=== PATIENT | male | born 1990 | race Caucasian/White ===

== ENCOUNTER → 2019-11-15 14:04 | Outpatient (BNVA) | payer SELFPAY | PROVIDERS: Family Provider Family Medicine; Visit Provider Nurse Practitioner | DX: S93.402A Sprain of unspecified ligament of left ankle, initial encounter (principal); W23.1XXA Caught, crushed, jammed, or pinched between stationary objects, initial encounter; Z68.27 Body mass index [BMI] 27.0-27.9, adult; F17.210 Nicotine dependence, cigarettes, uncomplicated | CPT/HCPCS: 73610 ==

== ENCOUNTER 2021-02-26 16:33 | Inpatient (IN) | payer SELFPAY ==
[2021-02-26 16:42] VITALS: BP 148/87; PULSE 87; RESP 18; TEMP 37; O2SAT 97; BMI 27.1
--- NOTE | 2021-02-26 16:44 | W.ED.PSYCH ---
HPI - Psych General: Chief Complaint: Psychiatric Symptoms Stated Complaint: 96 - THOUGHTS OF SELF HARM Time Seen by Provider: 02/26/21 16:44 History of Present Illness: HPI Narrative: Mr. Arteaga is a 31-year-old gentleman with no significant past medical history who presents emergency department for psychiatric evaluation. He describes a longstanding history of psychiatric concerns going back to when he was 8 years old and his father . He, as a child and teenager, was evaluated by psychiatry and had a few inpatient stays however is not been on medication or back to a psychiatric care provider for years. He is not currently on any medications. He reports a longstanding history of suicidal ideation and various plans across his mind. He describes episodes of blowups where he nearly gets to the point of trying to kill himself but stops. He offers good insight into knowing that he is not his best self because of these issues and wants to be better. No prior actual suicide attempts. No other medical complaints. Overall the course of symptoms persists. Intensity today is moderate to severe in law enforcement was involved after his fianc?e called them because of 1 of these episodes. He endorses sitting in his car with plan to shoot himself though he did not actually load a gun. He additionally thinks of cutting himself or jumping in front of traffic. Review of Systems General: Reports: 10 or more systems reviewed and unremarkable except in HPI and below PFSH ED PFSH: Social History Smoking and tobacco status: current every day smoker Physical Exam Narrative: EXAM NARRATIVE: GENERAL/CONSTITUTIONAL - well-appearing. No acute distress. Eyes -no scleral icterus, no conjunctival injection ENMT - Atraumatic external nose and ears. Moist mucous membranes NECK - supple. trachea midline CARDIOVASCULAR - regular rate and rhythm. RESPIRATORY -clear to auscultation bilaterally. ABDOMEN/GI - Nontender/Nondistended. MSK - Extremities without obvious deformity or tenderness to palpation SKIN - Warm, Dry NEURO - alert and appropriately oriented.Moves all extremities equally. PSYCH -depressed. Mildly anxious Course ED course: - Patient was seen and evaluated by me at bedside - Patient placed on cardiac monitors, IV access obtained - Initial evaluation notable for exam as noted above, nontoxic. Cooperative. - Labs notable for leukocytosis of unclear etiology, no specific infectious symptoms ordered, patient likely somewhat hemoconcentrated. Ingestions negative with exception of marijuana. No significant metabolic abnormality to explain patient's symptoms - Upon serial reexamination after treatment the patient was similar. He did express frustration regarding not being allowed to go out and smoke. - Given the patient's actions today 96-hour paperwork filled out after discussion with psychiatry. - Psychiatry service to admit the patient. Based on ED evaluation there is no obvious condition that would preclude the patient from inpatient management of psychiatric symptoms. Vital Signs: Vital signs: Vital Signs Temperature 98.2 F 02/27/21 20:33 Pulse Rate 56 L 02/27/21 20:33 Respiratory Rate 18 02/27/21 20:33 Blood Pressure 101/61 02/27/21 20:33 Pulse Oximetry 98 02/27/21 20:33 MDM - Psych Medical Records: Attestation: I reviewed the patient's medical records. Lab Data: Attestation: I reviewed the patient's lab results. Labs: Lab Results 02/26/21 02/26/21 02/26/21 16:55 16:55 16:55 WBC 14.0 10^3/uL H 10 ^3/uL (4.0-10.0) RBC 5.55 10^6/uL H 10 ^6/uL (4.1-5.3) Hgb 16.6 g/dL g/dL (11.7-16.6) Hct 48.9 % % (42.0-52.0) MCV 88.1 fl fl (80-94) MCH 29.9 pg pg (28.0-34.0) MCHC 33.9 g/dL g/dL (30.0-36.0) RDW 13.5 % % (12.1-15.1) Plt Count 202 10^3/cmm 10^3 /cmm (130-400) MPV 10.6 fL H fL (7.4-10.4) Neut % (Auto) 81.8 % % Lymph % (Auto) 11.4 % % [place] % (Auto) 6.2 % % Eos % (Auto) 0.1 % % Baso % (Auto) 0.2 % % Neut # (Auto) 11.47 10^3/uL H 1 0^3/uL (1.8-7.7) Lymph # (Auto) 1.6 10^3/uL 10^3/ uL (0.8-4.8) [place] # (Auto) 0.9 10^3/uL 10^3/ uL (0.2-0.9) Eos # (Auto) 0.0 10^3/uL 10^3/ uL (0.0-0.8) Baso # (Auto) 0.0 10^3/uL 10^3/ uL (0.0-0.1) Nucleated RBC % (a uto) 0 % % Nucleated RBCs # 0.0 /100WBC /100W BC Sodium 137 mmol/L mmol/L (136-145) Potassium 3.5 mmol/L mmol/L (3.5-5.1) Chloride 100 mmol/L mmol/L (98-107) Carbon Dioxide 25 mmol/L mmol/L (22-29) Anion Gap 15.5 (5-19) BUN 11 mg/dL mg/dL (6-20) Creatinine 0.9 mg/dL mg/dL (0.7-1.2) GFR Calculation 99.1 mL/min mL/mi n (90-130) Glucose 95 mg/dL mg/dL (65-115) Calculated Osmolal ity 283 mOsm/kg L mOs m/kg (285-295) Calcium 9.6 mg/dL mg/dL (8.5-10.5) Total Bilirubin 0.3 mg/dL mg/dL (0.15-1.2) AST 18 U/L U/L (0-40) ALT 23 U/L U/L (0-41) Alkaline Phosphata se 63 IU/L IU/L (40-130) Total Protein 7.7 g/dL g/dL (6.6-8.7) Albumin 5.0 g/dL g/dL (3.5-5.2) Globulin 2.7 g/dL g/dL (1.3-4.6) TSH 1.45 uIU/mL uIU/m L (0.27-4.20) Salicylates < 0.3 mg/dL L mg/ dL (3-10) Urine Opiates Scre en Negative ng/mL ng /mL (Negative) Acetaminophen < 5.0 ug/mL L ug/ mL (10-30) Ur Barbiturates Sc reen Negative ng/mL ng /mL (Negative) Ur Phencyclidine S crn Negative ng/mL ng /mL (Negative) Ur Amphetamines Sc reen Negative ng/mL ng /mL (Negative) U Benzodiazepines Scrn Negative ng/mL ng /mL (Negative) Urine Cocaine Scre en Negative ng/mL ng /mL (Negative) U Marijuana (THC) Screen Positive ng/mL H ng/mL (Negative) Ethyl Alcohol < 10 mg/dL mg/dL (0-10) Discharge Plan Discharge Patient Disposition: Admitted As Inpatient Admit Provider: Kavin Arteaga Clinical Impression: Suicidal ideation Condition: Stable Coding Level of Care Code ED Appeals Reviewer Veteran for Jean Carlos Avalos
--- NOTE | 2021-02-26 16:52 | ECG_ITS ---
[facility] Test Date: 2021-02-26 Pat Name: aTl Arteaga Department: Room: Gender: Male Curriculum Development Manager: : 1990 Requested By: Zac Patel Order Number: [id number] Hicks MD: Mary Jesus M.D. Measurements Intervals [place] Rate: 80 P: 52 FL: 165 QRS: 69 QRSD: 96 T: 42 QT: 344 QTc: 397 Interpretive Statements SINUS RHYTHM No previous ECG available for comparison Electronically Signed On 02-26-2021 21:55:13 CDT by Mary Jesus M.D. [id number]
[2021-02-26 17:05] LABS: Basophils % 0.2 %; Eosinophils % 0.1 %; Hematocrit 48.9 % (42.0-52.0); Hemoglobin 16.6 g/dL (11.7-16.6); Lymphocytes # 1.6 10^3/uL (0.8-4.8); Lymphocytes % 11.4 %; Mean Corpuscular HGB Conc 33.9 g/dL (30.0-36.0); Mean Corpuscular Hemoglobin 29.9 pg (28.0-34.0); Mean Corpuscular Volume 88.1 fl (80-94); Mean Platelet Volume 10.6 fL (7.4-10.4); Monocytes # 0.9 10^3/uL (0.2-0.9); Monocytes % 6.2 %; Neutrophils # 11.47 10^3/uL (1.8-7.7); Neutrophils % 81.8 %; Nucleated Red Blood Cells % 0 %; Platelet Count 202 10^3/cmm (130-400); Red Blood Count 5.55 10^6/uL (4.1-5.3); Red Cell Distribution Width 13.5 % (12.1-15.1)
[2021-02-26 17:25] VITALS: BP 148/87; PULSE 98; RESP 18; TEMP 36.8; O2SAT 98
[2021-02-26 17:28] LABS: Amphetamines Screen Urine Negative (Negative); Barbiturates Screen Urine Negative (Negative); Benzodiazepines Screen Urine Negative (Negative); Cocaine Screen Urine Negative (Negative); Opiate Screen Urine Negative (Negative); PCP Screen Urine Negative (Negative); THC Screen Urine Positive (Negative)
[2021-02-26 17:34] LABS: Alanine Aminotransferase 23 U/L (0-41); Alkaline Phosphatase 63 IU/L (40-130); Anion Gap 15.5 (5-19); Aspartate Amino Transferase 18 U/L (0-40); Blood Urea Nitrogen 11 mg/dL (6-20); Calcium 9.6 mg/dL (8.5-10.5); Carbon Dioxide 25 mmol/L (22-29); Chloride 100 mmol/L (98-107); Globulin 2.7 g/dL (1.3-4.6); Glomerular Filtration Rate 99.1 mL/min (90-130); Glucose 95 mg/dL (65-115); Osmolality Calculated 283 mOsm/kg (285-295); Potassium 3.5 mmol/L (3.5-5.1); Sodium 137 mmol/L (136-145); Thyroid Stimulating Hormone 1.45 uIU/mL (0.27-4.20); Total Bilirubin 0.3 mg/dL (0.15-1.2); Total Protein 7.7 g/dL (6.6-8.7)
[2021-02-26 17:35] LABS: Acetaminophen < 5.0 ug/mL (10-30); Alcohol Level < 10 mg/dL (0-10); Salicylate < 0.3 mg/dL (3-10)
[2021-02-26 17:40] LABS: Slide Review Slide Review Perform
[2021-02-26 20:33] VITALS: BP 143/74; PULSE 89; RESP 18; TEMP 36.8; O2SAT 98
[2021-02-27 06:00] VITALS: BP 117/76; PULSE 82; RESP 15; O2SAT 97
--- NOTE | 2021-02-27 11:21 | NPU.GN ---
[facility] Group Topic: Meditation Psych Education General Mood of Group: Tal did attend group this morning and participated and liked meditation. Tal socialized a little.
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
[2021-02-27 14:00] VITALS: RESP 18
[2021-02-27 20:33] VITALS: BP 101/61; PULSE 56; RESP 18; TEMP 36.8; O2SAT 98
--- NOTE | 2021-02-28 04:05 | PC.NURSE ---
Patient up in evening. Calm, cooperative. Declines any SI/HI, AVH, anxiety, or depression in evening. Smiling and had good interaction noted. Has remained in bed resting with eyes closed most of night. No complaints during night. No signs of distress noted.
[2021-02-28 06:00] VITALS: BP 120/73; PULSE 55; RESP 19; TEMP 36.7; O2SAT 99
[2021-02-28] MEDS: escitalopram 10 mg Tablet PO (11:34)
--- NOTE | 2021-02-28 11:58 | NPU.GN ---
[facility] Topic:Meditation/ Depression Kassidy General Mood of Group: Tal did great today and attended group. Tal was participating and in a good mood and mindset. He was social with this engineering technical writer and the other patients in group.
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
[2021-02-28 12:35] VITALS: BP 120/73; PULSE 55; RESP 19; TEMP 36.7; O2SAT 99
== END 2021-02-28 14:07 | disposition home or self-care (01) | DRG 885 ==
LOC: ER 17:47 → NP 20:08
PROVIDERS: Admitting Provider Psychiatry & Neurology Psychiatry; Emergency Provider Emergency Medicine; Visit Provider Psychiatry & Neurology Psychiatry
DX: F33.9 Major depressive disorder, recurrent, unspecified (principal); R45.851 Suicidal ideations; F12.10 Cannabis abuse, uncomplicated; F17.200 Nicotine dependence, unspecified, uncomplicated; Z62.810 Personal history of physical and sexual abuse in childhood
CPT/HCPCS: 80053; 80306; 80307; 84443; 85025; 93005; 97150; 97165; 99285